=== PATIENT | male | born 1985 | race Caucasian/White ===

== ENCOUNTER 2017-03-10 16:18 | Emergency (ER) | payer MEDICAID ==
[~2017-03-10] VITALS: Ht 177.8 cm; Wt 115.5 kg
[2017-03-10 16:20] VITALS: Ht 177.8 cm; Wt 115.5 kg
[2017-03-10] MEDS ORDERED: HYDROCODONE/APAP (5/325) TAB PO ONE (17:00)
[2017-03-10] MEDS ORDERED: CYCLOBENZAPRINE 10 MG TAB PO ONE (17:00)
--- NOTE | 2017-03-10 17:35 | ERD ---
ER Documentation Chief Complaint Date/Time DATE: 03/10/17 TIME: 17:33 Chief Complaint 8/10 lower back pain x 3 days HPI This is a 31-year-old male presents to the ER with lower back pain that occurred over the last 3 days. Patient states he was laying down when he began to feel lower back pain. She states that pain is throbbing and sharp at the same time it radiates down his right leg. Patient denies any numbness or tingling of his right leg. He denies any trauma. He denies any urinary bowel incontinence. He denies any fevers or chills. Patient tried taking ibuprofen and applying [place] balm and heat pads to his back however has not worked. Patient has had an episode in the past which lasted about 6 weeks, he was told it was muscular pain. Patient has been helping his girlfriend who had a miscarriage over the last few weeks and he was trying to lift her. ROS 12 point review of systems was done, all negative except per HPI. Medications Home Meds Active Scripts Hydrocodone/Acetaminophen ([place] 5-325 Tablet) 1 Each Tablet, 1 TAB PO Q6H Y for PAIN, #20 TAB Prov:GILMARCHIKA C 03/10/17 Ibuprofen* (Motrin*) 600 Mg Tab, 600 MG PO Q6, #30 TAB Prov:GILMAR,CHIKA C 03/10/17 Orphenadrine Citrate (Norflex) 100 Mg Tablet.sa, 100 MG PO BID for 7 Days, TAB.SA Prov:GILMAR,CHIKA C 03/10/17 Allergies Allergies: Coded Allergies: No Known Allergy (Unverified , 03/10/17) PMhx/Soc Medical and Surgical Hx: pt denies Medical Hx, pt denies Surgical Hx History of Surgery: No Anesthesia Reaction: No Hx Neurological Disorder: No Hx Respiratory Disorders: No Hx Cardiac Disorders: No Hx Psychiatric Problems: No Hx Miscellaneous Medical Probl: No Hx Alcohol Use: No Hx Substance Use: No Hx Tobacco Use: No Smoking Status: Never smoker Physical Exam Vitals Vital Signs Date Time Temp Pulse Resp B/P Pulse Ox O2 Delivery O2 Flow Rate FiO2 03/10/17 16:20 98.9 63 18 138/85 98 Physical Exam GENERAL: The patient is well developed and appropriate for usual state of health , in no apparent distress. CHEST: Clear to auscultation bilaterally. There are no rales, wheezes or rhonchi. HEART: Regular rate and rhythm. No murmurs, clicks, rubs or gallops. ABDOMEN: Soft, nontender and nondistended. Good bowel sounds. No rebound or guarding. No gross peritonitis. No gross organomegaly or masses. No Love sign or McBurney point tenderness. No pulsatile abdominal mass. BACK: Patient has painful ambulation. He is in moderate distress while sitting down. There is no surface trauma. No abrasions, scars, ecchymosis. Patient is tender to palpation to paraspinal muscles. There is spasm noted. There is no step-offs or deformity of the bony cervical and thoracic spine. Patient is tender to palpation from L3-L5. Patient has painful extension and flexion of the back, normal lateral bending and rotation without limitation or complaint of pain. Dorsi and plantar flexion with adequate strength. Straight leg raises are negative for radiculopathy. Patellar reflexes equal and brisk bilaterally. Good dorsalis pedal pulses and posterior tibial pulse. NEURO: Alert and oriented. Results 24 hrs Laboratory Tests Test 03/10/17 18:02 Bedside Urine pH (LAB) 5.5 Bedside Urine Protein (LAB) Negative Bedside Urine Glucose (UA) Negative Bedside Urine Ketones (LAB) Negative Bedside Urine Blood Negative Bedside Urine Nitrite (LAB) Negative Bedside Urine Leukocyte Esterase (L Negative Current Medications Medications (Trade) Dose Ordered Sig/Jackie Route PRN Reason Start Time Stop Time Status Last Admin Dose Admin Acetaminophen/ Hydrocodone Bitart ([place] (5/325)) 1 tab ONCE ONCE PO 03/10/17 17:00 03/10/17 17:01 DC 03/10/17 17:48 Cyclobenzaprine HCl (Flexeril) 10 mg ONCE ONCE PO 03/10/17 17:00 03/10/17 17:01 DC 03/10/17 17:47 [place] [id number] Radiology Main Line: [phone] DIAGNOSTIC IMAGING REPORT Patient: MATTHEW MINA : 1985 Age: 31 Sex: M MR #: [id number] DOS: 03/10/17 0000 Ordering MD: CHIKA SCHAFER PA-C Location: [facility] Room/Bed: PROCEDURE: XR Lumbar Spine. CLINICAL INDICATION: Lumbar spine pain. TECHNIQUE: AP, lateral, and cone-down lateral view of the lumbar spine were obtained. COMPARISON: No prior studies are available for comparison. FINDINGS: There is a 3 mm of anterolisthesis of L5 on S1 due to bilateral pars defects at this level. There are anterior osteophytes from at L5-S1 with mild narrowing of the intervertebral disc spaces at this level. There are mild associated discogenic endplate changes at this level. The vertebral body heights are maintained. There is no evidence of fracture. The marrow density is normal in appearance. There is moderate facet spondylosis at L5-S1 with suggestion of neural foraminal narrowing at this level. The remaining neural foramina appear patent. The paraspinal soft tissues unremarkable. There is no evidence of fracture. IMPRESSION: 1. 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 2. Bilateral L5 pars interarticularis defects with subsequent grade 1 anterolisthesis. 3. Moderate facet spondylosis at L5-S1 with suggestion of neural foraminal narrowing at this level. RPTAT: HGAS .Boom Mcginnis MD, MD Date Time Electronically viewed and signed by .Boom Mcginnis MD, MD on 03/10/2017 17: 55 .S/ CC: CHIKA SCHAFER [place] [id number] Radiology Main Line: [phone] DIAGNOSTIC IMAGING REPORT Patient: MATTHEW MINA : 1985 Age: 31 Sex: M MR #: [id number] DOS: 03/10/17 0000 Ordering MD: CHIKA SCHAFER. PA-Willow Location: [facility] Room/Bed: PROCEDURE: XR Thoracic Spine. CLINICAL INDICATION: Thoracic spine pain. TECHNIQUE: AP and lateral views of the thoracic spine were obtained. Images reviewed on a PACS workstation. COMPARISON: No prior studies are available for comparison. FINDINGS: The alignment of the thoracic spine is within normal limits. The vertebral body heights and marrow density are normal in appearance. There are minimal anterior osteophytes T8-9 with mild narrowing of the disc-space at this level. There is preservation of the remaining intervertebral disc spaces. The neural foramina appear patent. The paraspinal soft tissues unremarkable. The visualized portions of the thorax are unremarkable. IMPRESSION: 1. No acute abnormality of the thoracic spine. No evidence of fracture. 2. Mild spondylosis at T8-9. RPTAT: HGAS .Boom Mcginnis MD, MD Date Time Electronically viewed and signed by .Boom Mcginnis MD, MD on 03/10/2017 17: 57 .S/ CC: CHIKA SCHAFER Procedures/MDM Differential Diagnosis includes but is not limited to back strain, vertebral fracture, epidural abscess, cauda equina, herniated disc, AAA rupture, kidney stones, UTI, pyelonephritis, perforated viscous. This is a 39-year-old male presents to the ER with back pain is likely muscular in nature patient did have some neural foraminal narrowing at L5-S1, which may be causing some pain. Suspicion for infection such as discitis, transverse myelitis, epidural abscess is low as patient does not have a history of fevers, IV drug use, recent bacterial infection. I doubt cauda equina syndrome as patient does not have any lower extremity pain, weakness or numbness he has denies any urinary or bowel incontinence. Patient's vital signs are stable with no evidence of hypotension. Patient will be sent with ibuprofen, [place], Norflex. She needs to follow-up with his primary care doctor within 1-2 days return to ER sooner if symptoms worsen. My medical decision making shared with the patient he understands and agrees with plan. Departure Diagnosis: Primary Impression: Back pain Condition: Stable CHIKA SCHAFER Mar 10, 2017 17:35
--- NOTE | 2017-03-10 17:56 | RADRPT ---
PROCEDURE: XR Lumbar Spine. CLINICAL INDICATION: Lumbar spine pain. TECHNIQUE: AP, lateral, and cone-down lateral view of the lumbar spine were obtained. COMPARISON: No prior studies are available for comparison. FINDINGS: There is a 3 mm of anterolisthesis of L5 on S1 due to bilateral pars defects at this level. There a re anterior osteophytes from at L5-S1 with mild narrowing of the intervertebral disc spaces at this level. There are mild associated discogenic endplate changes at this level. The vertebral body heig hts are maintained. There is no evidence of fracture. The marrow density is normal in appearance. There is moderate facet spondylosis at L5-S1 with suggestion of neural foraminal narrowing at this level. The remaining neural foramina appear patent. The paraspinal soft tissues unremarkable. The re is no evidence of fracture. IMPRESSION: 1. 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 2. Bilateral L5 pars interarticularis defects with subsequent grade 1 anterolisthesis. 3. Moderate facet spondylosis at L5-S1 with suggestion of neural foraminal narrowing at this level. RPTAT: HGAS .Boom Mcginnis MD, Date Time Electronically viewed and signed by .Boom Mcginnis MD, on 03/10/2017 17:55 .S/
[2017-03-10 17:57] LABS: URINE BLOOD (Dip) POC Negative (NEGATIVE)
--- NOTE | 2017-03-10 17:57 | RADRPT ---
PROCEDURE: XR Thoracic Spine. CLINICAL INDICATION: Thoracic spine pain. TECHNIQUE: AP and lateral views of the thoracic spine were obtained. Images reviewed on a PACS wor kstation. COMPARISON: No prior studies are available for comparison. FINDINGS: The alignment of the thoracic spine is within normal limits. The vertebral body heights and marrow density are normal in appearance. There are minimal anterior osteophytes T8-9 with mild narrowing o f the disc-space at this level. There is preservation of the remaining intervertebral disc spaces. The neural foramina appear patent. The paraspinal soft tissues unremarkable. The visualized porti ons of the thorax are unremarkable. IMPRESSION: 1. No acute abnormality of the thoracic spine. No evidence of fracture. 2. Mild spondylosis at T8-9. RPTAT: HGAS .Boom Mcginnis MD, Date Time Electronically viewed and signed by .Boom Mcginnis MD, on 03/10/2017 17:57 .S/
[2017-03-10] MEDS ORDERED: IBUP-1542 PO (18:08)
[2017-03-10] MEDS ORDERED: HYDR-906 PO (18:08)
[2017-03-10] MEDS ORDERED: ORPH100T PO (18:08)
[2017-03-25 16:18] LABS: URINE BLOOD (Dip) POC Negative (NEGATIVE)
== END 2017-03-10 18:41 | disposition home or self-care (01) ==
LOC: FTE 16:18
DX: M54.5 Low back pain (principal)
CPT/HCPCS: 72072; 72100; 81003; Z7502; Z7610

== ENCOUNTER 2017-12-02 05:43 | Emergency (ER) | END 2017-12-02 06:18 | disposition home or self-care (01) ==

== ENCOUNTER 2019-04-06 18:00 | Emergency (ER) | payer OTHER ==
[~2019-04-06] VITALS: Ht 177.8 cm; Wt 124.2 kg
[~2019-04-06 18:00] MED LIST: CYCL10TA7 PO; HYDR-4011 PO; IBUP-1542 PO; NAPR-985 PO; OFLO5DRO46 LEFT EYE; ORPH100T PO
[2019-04-06 18:03] VITALS: BP 155/92; PULSE 80; RESP 16; Ht 177.8 cm; Wt 124.2 kg
--- NOTE | 2019-04-06 18:52 | ERD ---
ER Documentation Chief Complaint Chief Complaint Pt feels FB is in L eye HPI 33-year-old male who presents with complaint of left thigh foreign body feeling since yesterday. Patient states he was at work when he abruptly felt a sensation of something in his left eye. He does not wear contact lenses. He works in a restaurant and does not feel that he had any particles, dust, chemicals fly in the eye. Since that time is having trouble sleeping but worsening pain and redness to left eye. He denies any vision complaints, discharge from the eye, bleeding from eye. He otherwise is without complaint. ROS All systems reviewed and are negative except as per history of present illness. Medications Home Meds Active Scripts Ofloxacin* (Ocuflox*) 0.3%-5 Ml Ophth Drops, 1 DROP LEFT EYE QID for 10 Days, BOTTLE Prov:JULES HEWITT PA-C 04/06/19 Cyclobenzaprine Hcl* (Cyclobenzaprine Hcl*) 10 Mg Tablet, 10 MG PO QHS, #7 TAB Prov:ALHAJI SOTO PA-C 12/02/17 Naproxen* (Naprosyn*) 500 Mg Tablet, 500 MG PO BID PRN for PAIN AND/OR INFLAMMATION, #30 TAB Prov:ALHAJI SOTO PA-C 12/02/17 Hydrocodone/Acetaminophen ([place] 5-325 Tablet) 1 Each Tablet, 1 TAB PO Q6H PRN for PAIN, #20 TAB Prov:CHIKA SCHAFER 03/10/17 Ibuprofen* (Motrin*) 600 Mg Tab, 600 MG PO Q6, #30 TAB Prov:CHIKA SCHAFER 03/10/17 Orphenadrine Citrate (Norflex) 100 Mg Tablet.sa, 100 MG PO BID for 7 Days, TAB.SA Prov:CHIKA SCHAFER 03/10/17 Allergies Allergies: Coded Allergies: No Known Allergy (Unverified , 03/10/17) PMhx/Soc History of Surgery: No Anesthesia Reaction: No Hx Neurological Disorder: No Hx Respiratory Disorders: No Hx Cardiac Disorders: No Hx Psychiatric Problems: No Hx Miscellaneous Medical Probl: No Hx Alcohol Use: No Hx Substance Use: No Hx Tobacco Use: No FmHx Family History: No diabetes, No coronary disease, No other Physical Exam Vitals Vital Signs Date Temp Pulse Resp B/P (MAP) Pulse Ox O2 O2 Flow FiO2 Time Delivery Rate 04/06/19 98.3 80 16 155/92 100 18:03 (113) Physical Exam I have reviewed the triage vital signs. Const: Well nourished, well developed, appears stated age Eyes: Left eye with erythema, no pain with ocular movement in all planes, PERRLA HENT: NCAT, Neck supple without meningismus CV: RRR, Warm, well-perfused extremities RESP: CTAB, Unlabored respiratory effort GI: soft, non-tender, non-distended, no masses MSK: No gross deformities appreciated Skin: Warm, dry. No rashes Neuro: grossly non focal Psych: Appropriate mood and affect. Results 24 hrs Current Medications Medications Dose Sig/Jackie Start Time Status Last (Trade) Ordered Route PRN Stop Time Admin Dose Reason Admin Tetracaine 1 drop ONCE ONCE 04/06/19 DC HCl LEFT EYE 19:00 (Tetracaine 04/06/19 19:01 0.5% Steri-Unit Mari) Fluorescein 1 strip ONCE ONCE 04/06/19 DC Sodium LEFT EYE 19:00 ([id number]-A-Ddtn 04/06/19 19:01 p) Procedures/MDM 33-year-old male presents with complaint of left eye pain and foreign body sensation. I have low suspicion for any intercurrent ocular process warranting further emergent care or work-up. + Scleral injection No gross recent eye trauma or suspected microtrauma (dust, sand, etc). patient may have had corneal abrasion from small item given exam. No rust ring. Negative Shanae sign. No significant photophobia. Given history and exam I have low suspicion for ulcer, globe rupture, uveitis, HSV keratitis, Endopthalmitis, Retinal Detachment, Angle Closure Glaucoma, Retained Foreign Body. Patient advised to follow-up with eye care center. Prescribe with Ocuflox antibiotic. DISPOSITION PLAN: We discussed follow up with the patient's primary care doctor within 24 to 48 hours. Patient counseled regarding my diagnostic impression and care plan. Prior to discharge all questions answered. Pt agrees with treatment plan and understands strict return precautions. Precautionary instructions provided including instructions to return to the ER if not improving or for any worsening or changing symptoms or concerns. Disclaimer: Inadvertent spelling and grammatical errors are likely due to EHR/dictation software use and do not reflect on the overall quality of patient care. Also, please note that the electronic time recorded on this note does not necessarily reflect the actual time of the patient encounter. Departure Diagnosis: Primary Impression: Eye problem Condition: Stable JULES HEWITT PA-C Apr 06, 2019 18:52
[2019-04-06] MEDS ORDERED: TETRACAINE 0.5% 4 ML OPH LEFT EYE ONE (19:00)
[2019-04-06] MEDS ORDERED: FLUORESCEIN STRIP LEFT EYE ONE (19:00)
== END 2019-04-06 19:56 | disposition home or self-care (01) ==
LOC: FTE 18:00
DX: H57.89 Other specified disorders of eye and adnexa (principal)
CPT/HCPCS: Z7502; Z7610; 99283

== ENCOUNTER 2019-05-08 17:53 | Emergency (ER) | payer OTHER ==
[~2019-05-08] VITALS: Ht 175.3 cm; Wt 124.5 kg
[2019-05-08 18:44] VITALS: BP 137/88; PULSE 97; RESP 18; Ht 175.3 cm; Wt 124.5 kg
== END 2019-05-08 20:16 | disposition home or self-care (01) ==
LOC: FTE 17:53
DX: T15.92XA Foreign body on external eye, part unspecified, left eye, initial encounter (principal); X58.XXXA Exposure to other specified factors, initial encounter; Y92.9 Unspecified place or not applicable; Y93.9 Activity, unspecified
CPT/HCPCS: 99282